=== PATIENT | female | born 1985 | race Caucasian/White ===

== ENCOUNTER 2018-05-09 17:13 | Emergency (ER) | payer OTHER ==
[~2018-05-09] VITALS: Ht 167.6 cm; Wt 108.8 kg
[2018-05-09 17:48] LABS: HEMATOCRIT 41.9 % (36.0-46.0); HEMOGLOBIN 14.1 G/DL (11.9-15.5); MCH 29.3 PG (29.0-34.0); MCHC 33.7 G/DL (30.0-36.0); MCV 87.1 FL (83-99); PLATELET COUNT 375 K/uL (156-360); RBC DIS.WIDTH-CV 12.6 % (11.8-14.6); RBC DIS.WIDTH-SD 40.2 % (39-53); RED BLOOD COUNT 4.81 M/uL (3.80-5.20); WHITE BLOOD COUNT 15.2 K/uL (4.1-10.2)
[2018-05-09 17:55] LABS: INTER. NORMALIZED RATIO 0.9
[2018-05-09 17:58] LABS: PTT 29.6 SEC (25-37)
[2018-05-09 17:59] LABS: ALBUMIN 4.6 g/dL (3.2-4.8)
[2018-05-09 18:00] LABS: CHLORIDE 104 mEq/L (99-109); SODIUM 138 mEq/L (136-147)
[2018-05-09 18:02] LABS: GLUCOSE 111 mg/dL (70-99); TOTAL PROTEIN 7.7 g/dL (6.4-8.3)
[2018-05-09 18:04] LABS: TOTAL BILIRUBIN 0.9 mg/dL (0.0-1.0)
[2018-05-09 18:05] LABS: ALKALINE PHOSPHATASE 76 IU/L (3-129)
[2018-05-09 18:07] LABS: AST (GOT) 63 IU/L (2-34); CREATININE 0.8 mg/dL (0.6-1.3); GFR ESTIMATE (CALCULATED) > 59 mL/min/; UREA NITROGEN (BUN) 8 mg/dL (9-23)
[2018-05-09 18:08] LABS: ALT (GPT) 29 IU/L (3-49)
[2018-05-09 18:09] LABS: LIPASE 10 U/L (1.0-51.0)
[2018-05-09 18:16] LABS: QUANTITATIVE HCG < 4.0 MIU/ML
[2018-05-09 18:30] LABS: CREATINE KINASE 92 IU/L (1-294)
[2018-05-09 18:32] LABS: APPEARANCE CLOUDY ((CLEAR)); BILIRUBIN NEGATIVE; BLOOD LARGE; COLOR AMBER ((YELLOW)); GLUCOSE (STRIP) NEGATIVE; KETONES NEGATIVE; LEUKOCYTES LARGE; NITRITE POSITIVE; PROTEIN (STRIP) >=500; SPECIFIC GRAVITY 1.017 (1.000-1.030); UROBILINOGEN 0.2 MG/DL (0.2-1.0)
[2018-05-09 18:53] LABS: BACTERIA 3+ /HPF; EPITHELIAL CELLS 1+ /HPF; MUCUS NONE SEEN /LPF; RED BLOOD CELLS TNTC /HPF (0-5); UCUL ADDED? YES; WHITE BLOOD CELLS TNTC /HPF (0-5)
[2018-05-09] MEDS ORDERED: KEFLEX500 MG PO (20:10)
[2018-05-09] MEDS ORDERED: PYRIDIUM200 MG PO (20:10)
[2018-05-09 20:36] VITALS: BP 135/80
== END 2018-05-09 20:32 | disposition home or self-care (01) ==
LOC: EME 17:13
PROVIDERS: Physician Assistant
DX: N39.0 Urinary tract infection, site not specified (principal); J45.909 Unspecified asthma, uncomplicated; E06.3 Autoimmune thyroiditis; I73.00 Raynaud's syndrome without gangrene; Q79.6 Ehlers-Danlos syndromes; F90.9 Attention-deficit hyperactivity disorder, unspecified type; M41.9 Scoliosis, unspecified; F41.9 Anxiety disorder, unspecified; F31.9 Bipolar disorder, unspecified; L40.50 Arthropathic psoriasis, unspecified
CPT/HCPCS: 74176; 80053; 81003; 82550; 83690; 84702; 85027; 85610; 85730; 87077; 87086; 87186; 99281; 99285; J0696; J3010; J7030